=== PATIENT | male | born 1965 | race Caucasian/White ===

== ENCOUNTER 2017-11-21 20:28 | Emergency (ER) | payer SELFPAY ==
[2017-11-21] MEDS ORDERED: LIDOCAINE 4%/MENTHOL 1% PATCH TD ONE (21:53)
[2017-11-21] MEDS ORDERED: ACETAMINOPHEN 500 MG TAB PO ONE (21:54)
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
[2017-11-21 22:52] VITALS: BP 121/81
[2017-11-22] MEDS ORDERED: PATCH REMOVAL 1 EA PATCH TD SCH (21:00)
== END 2017-11-21 22:51 | disposition home or self-care (01) ==
LOC: CED 20:28
DX: S06.0X1A Concussion with loss of consciousness of 30 minutes or less, initial encounter (principal); S22.32XA Fracture of one rib, left side, initial encounter for closed fracture; Y04.2XXA Assault by strike against or bumped into by another person, initial encounter; F17.200 Nicotine dependence, unspecified, uncomplicated
CPT/HCPCS: 70450-PO; 71101-PO